=== PATIENT | female | born 1955 | race Caucasian/White ===

== ENCOUNTER 2019-05-20 02:15 | Emergency (ER) | payer BC ==
--- NOTE | 2019-05-20 02:40 | ER Document Report ---
HPI - HPI Time Seen by Provider: 05/20/19 02:34 Pain Level: Denies Context: Patient is a 63-year-old female that comes to the emergency department for chief complaint of about 3 days of worsening discomfort and hesitancy with urination. She denies any other symptoms including flank pain, abdominal pain, nausea/vomiting, fever/chills. She denies frequent bladder infections, denies history of kidney stones, only surgeries are tubal ligation and orthopedic. Past medical history of hypertension and arthritis. - URINARY Urinary: REPORTS: Urgency, Frequency Past Medical History - General Information source: Patient - Social History Smoking Status: Never Smoker Frequency of alcohol use: None Drug Abuse: None Lives with: Family Family History: Reviewed & Not Pertinent Patient has suicidal ideation: No Patient has homicidal ideation: No - Past Medical History Cardiac Medical History: Reports: Hx Hypertension Musculoskeletal Medical History: Reports Hx Arthritis - Immunizations Immunizations up to date: Yes Hx Diphtheria, Pertussis, Tetanus Vaccination: Yes Vertical Provider Document - CONSTITUTIONAL General Appearance: WD/WN, No Apparent Distress - HEENT HEENT: Atraumatic, Normal ENT Exam, Normocephalic - NECK Neck: Normal Inspection - RESPIRATORY Respiratory: Breath Sounds Normal, No Respiratory Distress - CARDIOVASCULAR Cardiovascular: Regular Rate, Regular Rhythm. negative: Tachycardia - GI/ABDOMEN Gastrointestinal: Abdomen Soft, Abdomen Non-Tender. negative: Abdomen Tender, Abdominal Guarding - BACK Back: Normal Inspection. negative: CVA Tenderness-Right, CVA Tenderness-Left - MUSCULOSKELETAL/EXTREMETIES Musculoskeletal/Extremeties: MAEW, FROM, Non-Tender - NEURO Level of Consciousness: Awake, Alert, Appropriate Motor/Sensory: No Motor Deficit, No Sensory Deficit - DERM Integumentary: Warm, Dry, No Rash Course - Re-evaluation Re-evalutation: 05/20/19 03:04 Patient initially unable to give us a urine sample. She is visibly frustrated. We will check kidney functioning and basic labs. CBC unremarkable, chemistry unremarkable, patient was able to urinate without IV fluids after I reevaluated her. Urine shows obvious infection. Culture placed. Given Rocephin. Starting on antibiotics at home. Patient has no CVA tenderness, abdominal pain, fever, nausea/vomiting, or concerning vital signs at this time. Discussed follow-up, expectations, and strict return precautions. Patient and state understanding and agreement with plan. - Vital Signs Vital signs: Temp Pulse Resp BP Pulse Ox 97.9 F 78 16 127/63 H 92 05/20/19 02:19 05/20/19 02:19 05/20/19 02:19 05/20/19 02:19 05/20/19 02:19 - Laboratory Result Diagrams: 05/20/19 03:04 05/20/19 03:04 Discharge - Discharge Clinical Impression: Dysuria Urinary tract infection Qualifiers: Urinary tract infection type: site unspecified Hematuria presence: with hematuria Qualified Code(s): N39.0 - Urinary tract infection, site not specified Condition: Stable Disposition: HOME, SELF-CARE Additional Instructions: Your evaluation is consistent with a bladder infection and we are treating you to prevent further development. We have a culture growing in the lab. Take the antibiotics as prescribed to completion. Follow-up with primary care. Return if you worsen including developing abdominal pain, nausea/vomiting, fever/chills, or any other concerning or worsening symptoms. Prescriptions: Cephalexin Monohydrate [Keflex 500 mg Capsule] 500 mg PO BID 7 Days #14 capsule Referrals: JONAH GLASS NP [Primary Care Provider] - Follow up as needed
[2019-05-20 03:18] LABS: ABSOLUTE BASOPHILS # (AUTO) 0.1 10^3/uL (0.0-0.2); ABSOLUTE EOSINOPHILS # (AUTO) 0.2 10^3/uL (0.0-0.6); ABSOLUTE LYMPHOCYTES (AUTO) 2.9 10^3/uL (0.5-4.7); ABSOLUTE MONOCYTES (AUTO) 0.7 10^3/uL (0.1-1.4); ABSOLUTE NEUT (AUTO) 5.6 10^3/uL (1.7-8.2); BASOPHILS % (AUTO) 0.8 % (0-2); EOSINOPHILS % (AUTO) 2.6 % (0-6); HEMATOCRIT 42.9 % (36.0-47.0); HEMOGLOBIN 14.8 g/dL (12.0-15.5); LYMPHOCYTES % (AUTO) 30.6 % (13-45); MEAN CORPUSCULAR HEMOGLOBIN 31.5 pg (27.0-33.4); MEAN CORPUSCULAR HGB CONC 34.5 g/dL (32.0-36.0); MEAN CORPUSCULAR VOLUME 91 fl (80-97); MONOCYTES % (AUTO) 7.2 % (3-13); PLATELET COUNT 254 10^3/uL (150-450); RED BLOOD COUNT 4.71 10^6/uL (3.72-5.28); RED CELL DISTRIBUTION WIDTH 13.9 % (11.5-14.0); SEGMENTED NEUTROPHILS % (AUTO) 58.8 % (42-78); TOTAL CELLS COUNTED % (AUTO) 100 %; WHITE BLOOD COUNT 9.5 10^3/uL (4.0-10.5)
[2019-05-20 03:23] LABS: APPEARANCE,URINE TURBID; BILIRUBIN,URINE NEGATIVE (NEGATIVE); COLOR,URINE YELLOW; GLUCOSE, URINE NEGATIVE (NEGATIVE); KETONES,URINE NEGATIVE (NEGATIVE); LEUKOCYTE ESTERASE,URINE LARGE (NEGATIVE); NITRITE,URINE NEGATIVE (NEGATIVE); PROTEIN,URINE 100 mg/dL (NEGATIVE); URINE SPECIFIC GRAVITY 1.017; UROBILINOGEN,URINE NEGATIVE mg/dL (<2.0)
[2019-05-20] MEDS ORDERED: CEFTRIAXONE 1 GM/D5W RTU 1 GM/50 ML RTUPB IV ONE (03:29)
[2019-05-20 03:40] LABS: ANION GAP 8 (5-19); BLOOD UREA NITROGEN 22 mg/dL (7-20); CALCIUM 9.7 mg/dL (8.4-10.2); CARBON DIOXIDE 28 mmol/L (22-30); CHLORIDE 106 mmol/L (98-107); GLUCOSE 99 mg/dL (75-110)
[2019-05-20 04:12] VITALS: BP 120/61
== END 2019-05-20 04:12 | disposition home or self-care (01) ==
LOC: ER 02:15
DX: N39.0 Urinary tract infection, site not specified (principal); I10 Essential (primary) hypertension; Z98.51 Tubal ligation status
CPT/HCPCS: 99283; 96365; 36415; 87086; 85025; 87088; 80048; 81001; J0696; 87186

== ENCOUNTER 2019-07-29 11:20 | Emergency (ER) | payer BC ==
--- NOTE | 2019-07-29 12:01 | ER Document Report ---
ED Medical Screen (RME) - General Chief Complaint: Leg Swelling Stated Complaint: LEG SWELLING Time Seen by Provider: 07/29/19 11:53 Primary Care Provider: JONAH GLASS NP [Primary Care Provider] - Follow up as needed TRAVEL OUTSIDE OF THE [place] IN LAST 30 DAYS: No - HPI Notes: 07/29/19 12:06 63-year-old female to the emergency department with complaints of right leg swelling for the past 2 days. She states that she has a history of DVT and is concerned that she may have the same. She is not on any exogenous hormones. She has not been recently traveling. She does not have a history of malignancy. She is not recently been immobilized. She states that the leg swelled on her about 2 weeks ago and she ignored it thinking it was related to the knee brace she was wearing and it seemed to get better. However now that it is swollen again she is concerned. She denies any chest pain or shortness of breath. She is not currently on any dedicated blood thinners. She does state that she takes 81 mg of aspirin. I performed a brief medical screening exam on the patient determined that she will need further evaluation and management by main side provider. I placed initial orders to help expedite her care. - Related Data Allergies/Adverse Reactions: Sulfa (Sulfonamide Antibiotics) Allergy (Verified 05/20/19 02:39) Past Medical History - Social History Frequency of alcohol use: None Drug Abuse: None - Past Medical History Cardiac Medical History: Reports: Hx Hypertension Musculoskeltal Medical History: Reports Hx Arthritis - Immunizations Immunizations up to date: Yes Hx Diphtheria, Pertussis, Tetanus Vaccination: Yes Physical Exam - Vital signs Vitals: Temp Pulse Resp BP Pulse Ox 98.7 F 81 16 130/68 H 97 07/29/19 11:24 07/29/19 11:24 07/29/19 11:24 07/29/19 11:24 07/29/19 11:24 Course - Vital Signs Vital signs: Temp Pulse Resp BP Pulse Ox 98.7 F 81 16 130/68 H 97 07/29/19 11:24 07/29/19 11:24 07/29/19 11:24 07/29/19 11:24 07/29/19 11:24 Doctor's Discharge - Discharge Referrals: JONAH GLASS NP [Primary Care Provider] - Follow up as needed
[2019-07-29 12:27] LABS: ABSOLUTE EOSINOPHILS # (AUTO) 0.1 10^3/uL (0.0-0.6); ABSOLUTE LYMPHOCYTES (AUTO) 2.2 10^3/uL (0.5-4.7); ABSOLUTE MONOCYTES (AUTO) 0.4 10^3/uL (0.1-1.4); ABSOLUTE NEUT (AUTO) 2.6 10^3/uL (1.7-8.2); BASOPHILS % (AUTO) 0.2 % (0-2); EOSINOPHILS % (AUTO) 2.7 % (0-6); HEMATOCRIT 41.2 % (36.0-47.0); HEMOGLOBIN 14.5 g/dL (12.0-15.5); LYMPHOCYTES % (AUTO) 40.5 % (13-45); MEAN CORPUSCULAR HEMOGLOBIN 31.5 pg (27.0-33.4); MEAN CORPUSCULAR HGB CONC 35.3 g/dL (32.0-36.0); MEAN CORPUSCULAR VOLUME 89 fl (80-97); MONOCYTES % (AUTO) 8.3 % (3-13); PLATELET COUNT 288 10^3/uL (150-450); RED BLOOD COUNT 4.62 10^6/uL (3.72-5.28); SEGMENTED NEUTROPHILS % (AUTO) 48.3 % (42-78); TOTAL CELLS COUNTED % (AUTO) 100 %; WHITE BLOOD COUNT 5.3 10^3/uL (4.0-10.5)
[2019-07-29 12:58] LABS: ALBUMIN 4.1 g/dL (3.5-5.0); ALKALINE PHOSPHATASE 48 U/L (38-126); ANION GAP 7 (5-19); ASPARTATE AMINO TRANSFERASE 31 U/L (14-36); BILIRUBIN,DIRECT 0.1 mg/dL (0.0-0.4); BILIRUBIN,TOTAL 0.5 mg/dL (0.2-1.3); BLOOD UREA NITROGEN 21 mg/dL (7-20); CALCIUM 10.1 mg/dL (8.4-10.2); CARBON DIOXIDE 30 mmol/L (22-30); CHLORIDE 104 mmol/L (98-107); GLUCOSE 97 mg/dL (75-110); POTASSIUM 4.3 mmol/L (3.6-5.0); TOTAL PROTEIN 6.9 g/dL (6.3-8.2)
--- NOTE | 2019-07-29 13:46 | ER Document Report ---
ED Extremity Problem, Lower - General Chief Complaint: Leg Swelling Stated Complaint: LEG SWELLING Time Seen by Provider: 07/29/19 11:53 Primary Care Provider: JONAH GLASS NP [Primary Care Provider] - Follow up in 3-5 days TRAVEL OUTSIDE OF THE [place] IN LAST 30 DAYS: No - HPI Notes: 63-year-old female to the emergency department with complaints of 2 days of right lower leg edema. She states that this happened about a week and half ago and she thought it was related to a knee brace that she was wearing. She states that she has a history of a left DVT after she was placed on exogenous hormones around the time that she is going through menopause. She is not currently on any exogenous hormones. She denies any recent travel. She denies any malignancy. She denies any recent immobilization or surgeries. However because the swelling is come back she is concerned that she may have a DVT. She denies any angelica pain in the leg. She denies any fevers or chills. She denies any skin changes. - Related Data Allergies/Adverse Reactions: Sulfa (Sulfonamide Antibiotics) Allergy (Verified 05/20/19 02:39) Past Medical History - General Information source: Patient - Social History Smoking Status: Never Smoker Frequency of alcohol use: None Drug Abuse: None Lives with: Family Family History: Reviewed & Not Pertinent Patient has suicidal ideation: No Patient has homicidal ideation: No - Past Medical History Cardiac Medical History: Reports: Hx Hypertension Musculoskeletal Medical History: Reports Hx Arthritis - Immunizations Immunizations up to date: Yes Hx Diphtheria, Pertussis, Tetanus Vaccination: Yes Review of Systems - Review of Systems Constitutional: denies: Chills, Fever EENT: No symptoms reported Cardiovascular: denies: Chest pain, Palpitations, Syncope, Dizziness, Lightheaded Respiratory: denies: Cough, Short of breath, Wheezing Gastrointestinal: denies: Abdominal pain, Diarrhea, Nausea, Vomiting Genitourinary: No symptoms reported Musculoskeletal: See HPI, Leg swelling Skin: No symptoms reported Hematologic/Lymphatic: No symptoms reported Neurological/Psychological: No symptoms reported -: Yes All other systems reviewed and negative Physical Exam - Vital signs Vitals: Temp Pulse Resp BP Pulse Ox 98.7 F 81 16 130/68 H 97 07/29/19 11:24 07/29/19 11:24 07/29/19 11:24 07/29/19 11:24 07/29/19 11:24 Interpretation: Normal - General General appearance: Appears well, Alert - HEENT Head: Normocephalic, Atraumatic Eyes: Normal Pupils: PERRL - Respiratory Respiratory status: No respiratory distress Chest status: Nontender Breath sounds: Normal Chest palpation: Normal - Cardiovascular Rhythm: Regular Heart sounds: Normal auscultation Murmur: No - Abdominal Inspection: Normal Distension: No distension Bowel sounds: Normal Tenderness: Nontender Organomegaly: No organomegaly - Extremities Notes: There is mild edema to the right lower extremity and particularly notable around the right ankle. There is no tenderness to palpation over the calf and there is no palpable cords. The leg is not erythematous. Nontender to palpation of bilateral hips, bilateral knees, bilateral ankles. DP pulses are intact and equal. Cap refill is less than 2 seconds. - Neurological Neuro grossly intact: Yes Cognition: Normal Orientation: AAOx4 Ragan Coma Scale Eye Opening: Spontaneous Ragan Coma Scale Verbal: Oriented Kayleigh Coma Scale Motor: Obeys Commands Kayleigh Coma Scale Total: 15 Speech: Normal Cranial nerves: Normal Cerebellar coordination: Normal. 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 No: Pronator drift Sensory: Normal - Psychological Associated symptoms: Normal affect, Normal mood - Skin Skin Temperature: Warm Skin Moisture: Dry Skin Color: Normal Course - Re-evaluation Re-evalutation: 07/29/19 Impression: Right lower leg peripheral edema. Negative DVT study. Lab work is reassuring. Will send home with MARIA ANTONIA toney. Encouraged elevation and ankle pumps. Will have her follow-up with primary care. Patient agrees with the plan. - Vital Signs Vital signs: Temp Pulse Resp BP Pulse Ox 98.0 F 80 18 128/72 H 97 07/29/19 14:04 07/29/19 14:04 07/29/19 14:04 07/29/19 14:04 07/29/19 14:04 - Laboratory Result Diagrams: 07/29/19 12:18 07/29/19 12:18 Laboratory results interpreted by me: 07/29/19 12:18 BUN 21 H - Diagnostic Test Radiology reviewed: Reports reviewed Discharge - Discharge Clinical Impression: Leg edema, right Condition: Stable Disposition: HOME, SELF-CARE Instructions: Edema, Peripheral ([facility]) Additional Instructions: Wear MARIA ANTONIA hose. Elevate the legs. Follow-up with primary care. Return if any worsening symptoms. You had a negative ultrasound for DVT in your leg today. Prescriptions: Compress.stocking,Knee,Reg,Lrg [Relief Knee Close Toe] 1 each MC DAILY #1 each Referrals: JONAH GLASS, [employer] [Primary Care Provider] - Follow up in 3-5 days
[2019-07-29 14:05] VITALS: BP 128/72
--- NOTE | 2019-07-29 15:03 | RADIOLOGY REPORT (SQ) ---
EXAM DESCRIPTION: VENOUS UNILATERAL LOWER COMPLETED DATE/TIME: 07/29/2019 2:53 pm REASON FOR STUDY: right leg swelling COMPARISON: None. TECHNIQUE: Dynamic and static estrada scale and color images acquired of the right leg venous system. S elected spectral images acquired with additional compression and augmentation maneuvers. The contrala teral common femoral vein and saphenofemoral junction were also imaged. Images stored on PACS. LIMITATIONS: None. FINDINGS: COMMON FEMORAL: Normal phasicity, compression and augmentation. No visualized echogenic ma terial on estrada scale. No defects on color images. FEMORAL: Normal compression and augmentation. No visualized echogenic material on estrada scale. No defe cts on color images. POPLITEAL: Normal compression, augmentation. No visualized echogenic material on estrada scale. No defec ts on color images. CALF VESSELS: Normal compression, augmentation. No visualized echogenic material on estrada scale. No de fects on color images. GSV and SSV: Normal compression, augmentation. No visualized echogenic material on estrada scale. No def ects on color images. ANY DEEP VENOUS INSUFFICIENCY: Not evaluated. ANY EVIDENCE OF POPLITEAL CYST: Yes OTHER: No other significant finding. CONTRALATERAL COMMON FEMORAL VEIN AND SAPHENOFEMORAL JUNCTION: Normal phasicity, compression and augmentation. No visualized echogenic material on estrada scale. No de fects on color images. IMPRESSION: NO EVIDENCE DVT OR SVT IN THE RIGHT LEG. Popliteal cysts. TECHNICAL DOCUMENTATION: JOB ID: [id number] [employer]- All Rights Reserved Reading location - IP/workstation name: [email or web address]
== END 2019-07-29 14:03 | disposition home or self-care (01) ==
LOC: ER 11:20
DX: R60.0 Localized edema (principal); Z86.718 Personal history of other venous thrombosis and embolism; Z88.2 Allergy status to sulfonamides; I10 Essential (primary) hypertension
CPT/HCPCS: 36415; 80053; 85025; 93971; 99284